=== PATIENT | male | born 1980 | race Caucasian/White ===

== ENCOUNTER 2017-10-16 17:27 | Observation (INO) | payer MEDICAID ==
--- NOTE | 2017-10-16 17:43 | EDPHY ---
H & P Time Seen by Provider: 10/16/17 17:43 HPI/ROS: Chief complaint. Abdominal pain HPI. 37-year-old male presents with abdominal pain of 2 days duration. He describes as cramping and bloating. He has had a recent URI but that seems to be improving. He has noticed with the cramping and bloating that he is burping more. Decreased passing gas per rectum. No nausea and vomiting. Diarrhea yesterday. Now stool productive of small hard pellets. The discomfort is somewhat moving sides but mainly in the lower right quadrant. Today somewhat sharp in addition to the cramping. Increased pain with walking movement and bumps in car. No radiation to back. No urinary symptoms. Penis and testicles are normal. No chest discomfort or shortness of breath. No fever. He has had similar symptoms previously. No history of abdominal surgery ROS Constitutional. no fever/chills, no weakness Eyes. no problems with vision ENT. no sore throat, no nasal drainage Cardiovascular. no chest pain Respiratory. no shortness of breath, no cough Abdominal. Abdominal pain with some diarrhea . no problems urinating MS. no calf pain/swelling, no neck/back pain, no joint pain Skin. no rash Lymph. no swollen glands Neuro. no headache, no dizziness, no difficulty walking or with speech Past Medical/Surgical History: Healthy Social History: , nonsmoker, no alcohol Smoking Status: Never smoked Physical Exam: General Appearance: Alert well-developed male moderate distress vital signs are stable Eyes: Pupils equal and round no pallor or injection. ENT, Mouth: Mucous membranes are moist. Respiratory: There are no retractions, lungs are clear to auscultation. Cardiovascular: Regular rate and rhythm. Gastrointestinal: Abdomen is soft with tenderness in the right lower quadrant at McBurney's point. Some tenderness along the inferior aspect of the umbilicus as well. Normal bowel sounds. No masses. Neurological: Awake and alert, sensory and motor exams grossly normal. Skin: Warm and dry, no rashes. Musculoskeletal: Neck is supple nontender. Extremities symmetrical, full range of motion. Psychiatric: Patient is oriented X 3, there is no agitation. Constitutional: Initial Vital Signs Temperature (C) 37.3 C 10/16/17 17:32 Heart Rate 100 10/16/17 17:32 Respiratory Rate 16 10/16/17 17:32 Blood Pressure 121/74 H 03/01/18 17:32 O2 Sat (%) 97 10/16/17 17:32 O2 Delivery Mode Room Air Allergies/Adverse Reactions: No Known Allergies Allergy (Verified 10/16/17 17:32) Home Medications: Medication Instructions Recorded NK [No Known Home Meds] 10/16/17 Medical Decision Making - Diagnostics Imaging Results: CT scan abdomen and pelvis with IV contrast reviewed by me and discussed with Dr. Boyle shows probably perforated appendix Procedures: IV normal saline. Morphine for pain. Zofran for nausea ED Course/Re-evaluation: Recheck at 7:00 p.m. And patient is having pain again. Re medicated with morphine The 7:40 p.m. Patient, his , and I discussed imaging study results, treatment plan including need for surgery. They expressed understanding and agreement. They would like to go by private vehicle to [facility]. Risks and benefits of this are discussed. Intravenous Invanz given. Patient is kept NPO I consulted Dr. Simeon, on-call for surgery. He is in the operating room and information was relayed to the nurse to Dr. Simeon. He agrees to accept the patient. I consulted and discussed case with Dr. Engle in the emergency department at [facility] so he is aware. Transfer paperwork is filled out Differential Diagnosis: I considered urinary tract infection, pyelonephritis, diverticulitis, appendicitis - Data Points Laboratory Results: Laboratory Results 10/16/17 17:50 10/16/17 17:50 10/16/17 10/16/17 10/16/17 19:05 17:50 17:50 WBC 20.17 10^3/uL H 10^3/uL (3.80-9.50) RBC 5.03 10^6/uL 10^6/uL (4.40-6.38) Hgb 15.8 g/dL g/dL (13.7-17.5) Hct 40.9 % % (40.0-51.0) MCV 81.3 fL L fL (81.5-99.8) MCH 31.4 pg pg (27.9-34.1) MCHC 38.6 g/dL H g/dL (32.4-36.7) RDW 10.8 % L % (11.5-15.2) Plt Count 380 10^3/uL 10^3/uL (150-400) MPV 8.4 fL L fL (8.7-11.7) Neut % (Auto) 88.3 % H % (39.3-74.2) Lymph % (Auto) 5.9 % L % (15.0-45.0) [place] % (Auto) 5.3 % % (4.5-13.0) Eos % (Auto) 0.0 % L % (0.6-7.6) Baso % (Auto) 0.1 % L % (0.3-1.7) Nucleat RBC Rel Count 0.0 % % (0.0-0.2) Absolute Neuts (auto) 17.81 10^3/uL H 10^3/uL (1.70-6.50) Absolute Lymphs (auto) 1.19 10^3/uL 10^3/uL (1.00-3.00) Absolute Monos (auto) 1.06 10^3/uL H 10^3/uL (0.30-0.80) Absolute Eos (auto) 0.00 10^3/uL L 10^3/uL (0.03-0.40) Absolute Basos (auto) 0.02 10^3/uL 10^3/uL (0.02-0.10) Absolute Nucleated RBC 0.00 10^3/uL 10^3/uL (0-0.01) Immature Gran % 0.4 % % (0.0-1.1) Immature Gran # 0.09 10^3/uL 10^3/uL (0.00-0.10) RBC/WBC/PLT Morphology NORMAL (NORMAL) Platelet Estimate ADEQUATE (ADEQ) Sodium 127 mEq/L L mEq/L (135-145) Potassium 3.6 mEq/L mEq/L (3.5-5.2) Chloride 90 mEq/L L mEq/L (97-110) Carbon Dioxide 24 mEq/l mEq/l (22-31) Anion Gap 13 mEq/L mEq/L (8-16) BUN 7 mg/dL mg/dL (7-23) Creatinine 0.7 mg/dL mg/dL (0.7-1.3) Estimated GFR > 60 Glucose 143 mg/dL H mg/dL (70-100) Calcium 9.1 mg/dL mg/dL (8.5-10.4) Urine Color PALE YELLOW Urine Appearance CLEAR Urine pH 5.5 (5.0-7.5) Ur Specific [place] <= 1.005 (1.002-1.030) Urine Protein NEGATIVE (NEGATIVE) Urine Ketones TRACE H (NEGATIVE) Urine Blood NEGATIVE (NEGATIVE) Urine Nitrate NEGATIVE (NEGATIVE) Urine Bilirubin NEGATIVE (NEGATIVE) Urine Urobilinogen 0.2 EU EU (0.2-1.0) Ur Leukocyte Esterase NEGATIVE (NEGATIVE) Urine Glucose NEGATIVE (NEGATIVE) Medications Given: Discontinued Medications Ertapenem (Invanz) 1 gm IVP EDNOW ONE PRN Reason: Protocol Stop: 10/16/17 19:37 Last Admin: 10/16/17 20:05 Dose: 1 gm Sodium Chloride (Ns) 1,000 mls @ 0 mls/hr IV EDNOW ONE; Wide Open PRN Reason: Protocol Stop: 10/16/17 18:03 Last Admin: 10/16/17 18:09 Dose: 1,000 mls Sodium Chloride (Ns) 1,000 mls @ 0 mls/hr IV ONCE ONE PRN Reason: Wide Open Stop: 10/16/17 20:04 Last Admin: 10/16/17 20:05 Dose: 1,000 mls Morphine Sulfate (Morphine) 6 mg IVP EDNOW ONE Stop: 10/16/17 18:03 Last Admin: 10/16/17 18:14 Dose: 6 mg Morphine Sulfate (Morphine) 6 mg IVP EDNOW ONE Stop: 10/16/17 19:08 Last Admin: 10/16/17 19:15 Dose: 6 mg Ondansetron HCl (Zofran) 4 mg IVP EDNOW ONE Stop: 10/16/17 18:03 Last Admin: 10/16/17 18:12 Dose: 4 mg Departure - Departure Disposition: [facility] Clinical Impression: Acute appendicitis Qualifiers: Acute appendicitis type: with localized peritonitis Qualified Code(s): K35.3 - Acute appendicitis with localized peritonitis Condition: Fair Referrals: NONE *PRIMARY CARE P,. [Primary Care Provider] - As per Instructions
[2017-10-16 17:57] LABS: PLATELET COUNT 380 10^3/uL (150-400)
[2017-10-16] MEDS ORDERED: ONDANSETRON 4 MG/2 ML VIAL IVP ONE (18:02)
[2017-10-16] MEDS ORDERED: NS 1,000 ML IV ONE ×2 (18:02→20:03)
[2017-10-16] MEDS ORDERED: IOPAMIDOL (ISOVUE-300) 100 ML BTL ONE (18:11)
[2017-10-16] MEDS ORDERED: ERTAPENEM 1 GM VIAL IVP ONE (19:36)
[2017-10-16] MEDS ORDERED: NS 100 ML BAG (MINI-BAG) IV ONE (19:52)
[2017-10-16] MEDS ORDERED: HYDROmorphONE/DILAUDID 2 MG/ML INJ IVP ONE (20:17)
[2017-10-16] MEDS ORDERED: ERTAPENEM 1 GM VIAL IV ONE (22:22)
--- NOTE | 2017-10-16 22:29 | PDGENHP ---
History & Physical Chief Complaint: abd pain x 2 days History of Present Illness: 37 y/o male with 2 day history of abd pain [place] [facility] [place]. CT showed appendicitis and he was transfered to [facility] for definitive surgical care Pertinent Past, Social, Family History: wisdom tooth extraction. smokes pot daily. 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 - icterus/adenopathy. Abd : soft/hypoactive bowel sounds. tender RLQ without guarding/mass + Rovsing's Cardiorespiratory Assessment: CVS RRR. Lungs CTA Assessment & Plan Assessment: Acute appendicitis (Acute) Plan: To OR for appendectomy re-dose Invanz pre-op we discussed surgery, risks and expected recovery informed consent was obtained
[2017-10-16] MEDS ORDERED: LR 1,000 ML IV SCH (22:30)
[2017-10-16] MEDS ORDERED: LR 1,000 ML IV ONE (22:46)
--- NOTE | 2017-10-16 22:51 | PDANEPAE ---
ANE History of Present Illness 37 year old male w/ acute appendicitis for lap appy. ANE Past Medical History - Cardiovascular History Hx Hypertension: No Hx Arrhythmias: No Hx Chest Pain: No Hx Coronary Artery / Peripheral Vascular Disease: No Hx CHF / Valvular Disease: No Hx Palpitations: No - Pulmonary History Hx COPD: No Hx Asthma/Reactive Airway Disease: No Hx Recent Upper Respiratory Infection: No Hx Oxygen in Use at Home: No Hx Sleep Apnea: No - Endocrine History Hx Diabetes: No Hypothyroid: No Hyperthyroid: No Obesity: no - Renal History Hx Renal Disorders: No - Liver History Hx Hepatic Disorders: No - Neurological & Psychiatric Hx Hx Neurological and Psychiatric Disorders: No - Cancer History Hx Cancer: No - Congenital Disorder History Hx Congenital Disorders: No - GI History Gastrointestinal History Comment: Acute appendicitis - Chronic Pain History Chronic Pain: No - Surgical History Prior Surgeries: Adamant teeth extraction ANE Review of Systems Review of systems is: negative Review of Systems: - Exercise capacity 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) ANE Patient History - Allergies Allergies/Adverse Reactions: No Known Allergies Allergy (Verified 10/16/17 17:32) - Home Medications Home medications: home medication list seen and reviewed Home Medications: NK [No Known Home Meds] 10/16/17 [Last Taken Unknown] - NPO status NPO Status: no food or drink >8 hours - Anes Hx Anes Hx: no prior problems - Smoking Hx Smoking Status: Never smoked Marijuana use: Yes - Alcohol Use Alcohol Use: Rarely - Family Anes Hx Family Anes Hx: neg - N/A ANE Labs/Vital Signs - Labs Result Diagrams: 10/16/17 17:50 10/16/17 17:50 - Vital Signs Vital Signs: reviewed preoperatively; see RN documention for details Blood Pressure: 116/71 Heart Rate: 95 Respiratory Rate: 16 O2 Sat (%): 95 Height: 172.72 cm Weight: 61.689 kg ANE Physical Exam - Airway Neck exam: FROM Mallampati Score: Class 2 Mouth exam: normal dental/mouth exam, friend - Pulmonary Pulmonary: no respiratory distress - Cardiovascular Cardiovascular: regular rate and rhythym - ASA Status ASA Status: I, E ANE Anesthesia Plan Anesthesia Plan: general endotracheal anesthesia Total IV Anesthesia: No
[2017-10-16] MEDS ORDERED: BUPIVACAINE 0.25% 30 ML SDV ONE (22:56)
[2017-10-16] MEDS ORDERED: LIDOCAINE 2% 5 ML SDV ONE (23:07)
[2017-10-16] MEDS ORDERED: ROCURONIUM 100 MG/10 ML VIAL ONE (23:07)
[2017-10-16] MEDS ORDERED: PROPOFOL 200 MG/20 ML VIAL ONE (23:07)
[2017-10-16] MEDS ORDERED: fentaNYL 100 MCG/2 ML INJ ONE (23:07)
[2017-10-16] MEDS ORDERED: DEXAMETHASONE 4 MG/ML VIAL ONE (23:19)
[2017-10-16] MEDS ORDERED: ONDANSETRON 4 MG/2 ML VIAL ONE (23:19)
[2017-10-16] MEDS ORDERED: PHENYLEPHRINE HCL 100 MCG/ML SYR ONE (23:23)
[2017-10-16] MEDS ORDERED: SUGAMMADEX SODIUM 200 MG/2 ML VIAL IVP ONE (23:49)
[2017-10-17] MEDS ORDERED: LR 500 ML IV PRN (00:03)
[2017-10-17] MEDS ORDERED: fentaNYL 100 MCG/2 ML INJ IVP PRN (00:03)
[2017-10-17] MEDS ORDERED: NALOXONE HCL 0.4 MG/ML INJ IVP PRN (00:03)
[2017-10-17] MEDS ORDERED: HYDROmorphONE/DILAUDID 2 MG/ML INJ IVP PRN (00:03)
[2017-10-17] MEDS ORDERED: ONDANSETRON 4 MG/2 ML VIAL IVP PRN ×2 (00:03→00:45)
[2017-10-17] MEDS ORDERED: PROMETHAZINE HCL 25 MG/ML INJ IVP PRN (00:03)
[2017-10-17] MEDS ORDERED: KETOROLAC 30 MG/1 ML SDV ONE (00:14)
[2017-10-17] MEDS ORDERED: ACETAMINOPHEN 325 MG TAB PO PRN (00:45)
[2017-10-17] MEDS ORDERED: HYDROmorphone HCL/NS 0.5 MG/ML SYR IVP PRN (00:45)
--- NOTE | 2017-10-17 00:45 | POSTOPPROG ---
Post Op Note Date of Operation: 10/17/17 Surgeon: Santy Sanchez (, FACS) Anesthesiologist: Seng Up MD Anesthesia: GET(General Endotracheal) Pre-op Diagnosis: appendicitis Post-op Diagnosis: gangrenous appendicitis Procedure: lap appendectomy Findings: acute gangrenous appendicitis Inf/Abcess present in the surg proc area at time of surgery?: Yes Depth: Organ Space EBL: Minimal (10) Complications: none
[2017-10-17] MEDS ORDERED: LR 1,000 ML IV SCH (01:00)
[2017-10-17 01:08] VITALS: RESP 14
[2017-10-17] MEDS: HYDROCODONE/APAP 5/325 TAB PO PRN ×3 (01:37→08:20)
--- NOTE | 2017-10-17 02:31 | GOP ---
[f rep st] OPERATIVE REPORT DATE OF OPERATION: 10/16/2017 SURGEON: Santy Sanchez MD, FACS ANESTHESIA: General endotracheal. ANESTHESIOLOGIST: Seng Up MD. PREOPERATIVE DIAGNOSIS: Acute appendicitis. POSTOPERATIVE DIAGNOSIS: Acute gangrenous appendicitis. PROCEDURE PERFORMED: Laparoscopic appendectomy. FINDINGS: Acute gangrenous appendicitis with relatively normal-appearing base of the appendix. No evidence of nan perforation or abscess formation. ESTIMATED BLOOD LOSS: 10 mL or less. DESCRIPTION OF PROCEDURE: After informed consent was obtained, the patient was brought to the operating room and placed under general anesthesia. The abdomen was clipped, prepped, and draped in the usual fashion. Before proceeding, a time-out and identification of the patient was performed. Marcaine 0.25% was used to infiltrate all incision sites. An initial longitudinal incision was made through the base of the umbilicus and ventral traction was applied to the abdominal wall. A Veress needle was introduced into the peritoneal cavity. Position was confirmed by saline infusion. A pneumoperitoneum was established with CO2 gas to a pressure of 15 mmHg. The Veress needle was withdrawn and replaced with a 5 mm bladeless trocar. A 0- degree scope was introduced and the peritoneal cavity was visualized. There was some cloudy fluid in the dependent portion of the pelvis. The bladder was moderately full. A 2nd port was placed part way between the umbilicus and the pubis under direct visualization. A left lower quadrant 12 mm port was established. This allowed introduction of atraumatic grasping forceps. The appendix laid deep in the pelvis between the bladder and the rectum and the pelvic sidewall, was somewhat adherent to the pelvic sidewall, and was slowly and carefully dissected bluntly away from these structures and was delivered out of the pelvis. The mesoappendix was taken down with the Harmonic Scalpel and the appendix where it joined the cecum appeared relatively normal in caliber. Here, it was divided with a JAELYN stapler and retrieved through the left lower quadrant port site using an Endopouch. The 12 mm port was replaced. A suction meter/relay technician was used to instill 2 L of warm normal saline solution into the peritoneal cavity and was aspirated until the effluent was clear. Hemostasis appeared secure. The 12 mm port site was closed with a transfascial closure needle and 0 Vicryl suture. The remaining ports were removed and the pneumoperitoneum was evacuated. The skin of all incisions was closed with 3-0 Monocryl suture in a subcuticular fashion. Mastisol and Steri-Strips were applied. Sterile dressings were placed. Patient was returned extubated to the recovery room in satisfactory condition. Needle, sponge, and instrument count were correct. Copy requested to: Corky Marshall MD [facility] /[id number]/MODL MTDD
[2017-10-17] MEDS ORDERED: IBUPROFEN 600 MG TAB PO SCH (06:00)
[2017-10-17 08:13] VITALS: BP 95/54; PULSE 66; TEMP 98; O2SAT 93
[2017-10-17] MEDS ORDERED: ENOXAPARIN 40 MG/0.4 ML SYR SC SCH (09:00)
[2017-10-17] MEDS ORDERED: SENNOSIDES/DOCUSATE SODIUM TAB PO SCH (09:00)
--- NOTE | 2017-10-17 09:31 | POSTANESTH ---
Post Anesthetic Evaluation Cardiovascular Status: Normal, Stable, Similar to Pre-Op Cond Respiratory Status: Normal, Stable, Similar to Pre-op Cond. Level of Consciousness/Mental Status: Can Participate in Eval, Alert and Oriented Pain Control: Adequate, Prn Tx Ordered Nausea/Vomiting Control: Adequate, Prn Tx Ordered Complications Possibly Related to Anesthesia: None Noted
[2017-10-17] MEDS ORDERED: ERTAPENEM 1 GM VIAL IV ONE (10:06)
--- NOTE | 2017-10-17 10:06 | PDDCSUM ---
Discharge Summary Discharge Summary: DOA 10/16/17 DOD 10/17/17 DC Dx: acute appendicitis Procedure: 10/16/17 lap appendectomy Course: Otoniel presented [place] [facility] [place] abd pain and was diagnosed with appendicitis by Dr. Morrissey. He was transferred to [facility] for definitive care and underwent lap appendectomy after receiving IV Ertapenam and IV fluids. His post op course was unremarkable and he tolerated a soft diet and was able to void after surgery. He was discharged home after receiving one additional dose of Ertapenam. He was instructed in wound care and activity and will follow up in one week for wound check. DC meds: Center 5/325 #20 Senokot S #30 Ibuprofen 600mg #30 S MD Laura, FACS
== END 2017-10-17 11:33 | disposition home or self-care (01) ==
LOC: CED 17:27 → CEDHOLD 20:18 → INTOOBSV 20:18 → F3E 21:31
PROVIDERS: ADMIT Surgery; ATTEND Surgery
PROC: 0DTJ4ZZ Resection of Appendix, Percutaneous Endoscopic Approach (ICD-10-PCS; principal; 2017-10-17)
DX: K35.2 Acute appendicitis with generalized peritonitis (principal); E86.9 Volume depletion, unspecified
CPT/HCPCS: 44970; 74177; 96361; 96374; 96375; 96376; 99285; G0378; 80048-PO; 81003-PO; 85025-PO; J1100; J1170; J1335; J1650; J1885; J2270; J2370; J2405; J2704; J3010; Q9967

== ENCOUNTER 2017-10-19 18:58 | Emergency (ER) | payer MEDICAID ==
[2017-10-19 19:07] VITALS: BP 109/69; PULSE 77; RESP 16; TEMP 98.4; O2SAT 96
--- NOTE | 2017-10-19 19:28 | EDPHY ---
H & P Time Seen by Provider: 10/19/17 19:03 HPI/ROS: Chief complaint: Patient requesting more pain medications. HPI: Patient states he had his appendix removed by Dr. Santy Sanchez early Friday morning after being seen at this facility evening. He was told he was"almost perforated". His surgery was unremarkable and he went home that same Friday. He has been taking 2 Atlanta every 4 hr as prescribed by Dr. Sanchez. He has also been taking stool softeners. He denies any nausea, vomiting, constipation. He has had no fevers or chills. His wounds are still covered by the original dressings. Per his he did try to call Dr. Sanchez office today but was unable to get a hold of anyone. No other complaints. Contents of 10 point review of systems otherwise negative except for what is mentioned in HPI. General Appearance: Alert, no distress. Eyes: Pupils equal and round no pallor or injection. ENT, Mouth: Mucous membranes moist. Respiratory: There are no retractions, lungs are clear to auscultation. Cardiovascular: Regular rate and rhythm. Gastrointestinal: Abdomen is soft with appropriate postoperative tenderness. Bowel sounds are hypoactive but present. Wounds clean with no drainage or erythema. Neurological: Oriented, alert, movement in all 4 extremities. Skin: Warm and dry, no rashes. Musculoskeletal: Neck is supple nontender. Extremities are symmetrical, full range of motion. Psychiatric: Patient is oriented X 3, there is no agitation. Past Medical/Surgical History: Appendectomy Social History: Lives with , one child. Smoking Status: Never smoked Constitutional: Initial Vital Signs Temperature (C) 36.9 C 10/19/17 19:03 Heart Rate 77 10/19/17 19:03 Respiratory Rate 16 10/19/17 19:03 Blood Pressure 109/69 10/19/17 19:03 O2 Sat (%) 96 10/19/17 19:03 O2 Delivery Mode Room Air Allergies/Adverse Reactions: No Known Allergies Allergy (Unverified 10/19/17 20:57) Home Medications: Medication Instructions Recorded Acetaminophen [Tylenol 325mg (*)] 650 mg PO Q4HRS PRN tab 10/17/17 Hydrocodone/APAP 5/325 [[place] 1 - 2 tab PO Q4HRS PRN #20 tab 03/02/18 5/325 (*)] Ibuprofen [Motrin (*)] 600 mg PO Q8HRS #30 tab 10/17/17 Sennosides/Docusate Sodium 1 tab PO BID #30 tab 10/17/17 [Senokot-S] Hydrocodone/Acetaminophen 2 each PO Q4-6PRN PRN 7 Days #10 10/19/17 [Hydrocodon-Acetaminophen 5-325] tablet Medical Decision Making Differential Diagnosis: Differential diagnosis includes postoperative complications such as abscess, obstruction, wound infection, drug-seeking behavior. After evaluation patient with appropriate postoperative pain and has not been overusing his medications. No evidence of obstruction, infection, abscess, wound dehiscence. Will prescribe a small amount of [place] for continued postoperative use. Discussed tapering opiate medications and utilizing ibuprofen and Tylenol. Patient does have follow-up with Dr. Santy Sanchez for postop check later this week. Stable for discharge. Departure - Departure Disposition: Home, Routine, Self-Care Clinical Impression: Postoperative abdominal pain Condition: Good Instructions: Pain Management After Surgery (DC) Additional Instructions: Continue stool softeners as discussed. See Dr. Sanchez in follow-up this week. Referrals: Santy Sanchez MD [Medical Doctor] - As per Instructions Prescriptions: Hydrocodone/Acetaminophen [Hydrocodon-Acetaminophen 5-325] 2 each PO Q4-6PRN PRN 7 Days #10 tablet PRN Reason: Pain, Moderate
== END 2017-10-19 19:46 | disposition home or self-care (01) ==
LOC: CED 18:58
DX: G89.18 Other acute postprocedural pain (principal); R10.9 Unspecified abdominal pain

== ENCOUNTER 2018-06-22 11:22 | Emergency (ER) | payer MEDICAID ==
[2018-06-22 11:34] VITALS: BP 127/75
--- NOTE | 2018-06-22 12:02 | EDPHY ---
H & P Time Seen by Provider: 06/22/18 11:27 HPI/ROS: This patient injured his hands while practicing martial arts. He describes having a closed fist and pending down on and in intermittent firm object striking with the 5th metacarpal region of his hand and sustaining an injury 10 days prior to arrival. Since that time he has had continued aching and swelling to the proximal 5th metacarpal region of his hand and describes associated paresthesias to the 5th finger intermittently. 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 No other exacerbating factors are noted. ROS: Neuro: No nan numbness to his hand. Musculoskeletal: No wrist pain though he has noticed occasional clicking in his wrist since the incident. Integumentary: No lacerations or abrasions. He does have ecchymosis associated with the area of injury. 5 point review of symptoms is performed and otherwise negative with exception of pertinent positives and negatives listed in HPI and ROS Past Medical/Surgical History: Otherwise healthy Smoking Status: Never smoked Physical Exam: Physical Exam Vital signs are normal. General: No acute distress Cardiac: Brisk capillary refill is intact throughout. Pulses are 2+ and symmetric in the affected extremity. Skin: No rash or pallor. Extremities: Atraumatic normal except for right hand Right hand: Patient has tenderness at the 5th metacarpal mid to proximal aspect with ecchymosis and mild swelling. There is no malrotation of the 5th finger when viewed on end. He has no wrist swelling or tenderness. No other hand swelling or tenderness. Neuro: Alert and oriented with no sensorimotor deficits in the affected hand. Initial differential diagnosis: Hand contusion, hand fracture Constitutional: Initial Vital Signs Temperature (C) 36.7 C 06/22/18 11:27 Heart Rate 64 06/22/18 11:27 Respiratory Rate 16 06/22/18 11:27 Blood Pressure 127/75 H 06/22/18 11:27 O2 Sat (%) 95 06/22/18 11:27 O2 Delivery Mode Room Air Allergies/Adverse Reactions: No Known Allergies Allergy (Verified 06/22/18 11:27) Home Medications: Medication Instructions Recorded NK [No Known Home Meds] 06/22/18 MDM/Departure - MDM Diagnostics: Three-view hand x-ray: Findings consistent with proximal 5th metacarpal fracture nondisplaced nonangulated by my interpretation Imaging Results: Imaging Impressions Hand X-Ray 06/22/18 11:31 Impression: Nondisplaced proximal metaphysis, fifth metacarpal fracture. Imaging: I viewed and interpreted images myself ED Course/Re-evaluation: Our tech placed the patient in Ortho Glass ulnar gutter splint with my supervision. The patient is neurovascularly intact post splint application. He is also fitted with a sling. I counseled patient regarding metacarpal fracture. - Depart Disposition: Home, Routine, Self-Care Clinical Impression: Closed fracture of 5th metacarpal Qualifiers: Encounter type: initial encounter Metacarpal location: base Fracture alignment : nondisplaced Laterality: right Qualified Code(s): S62.346A - Nondisplaced fracture of base of fifth metacarpal bone, right hand, initial encounter for closed fracture Condition: Good Instructions: Hand Fracture (ED) Additional Instructions: Diagnosis: 5th metacarpal fracture Plan: Keep splint on at all times-clean and dry Ibuprofen Tylenol if needed for discomfort Call Dr. Atkins-hand specialist arrange follow-up appointment for further evaluation and casting. Referrals: Idalia Lebron MD [Medical Doctor] - As per Instructions
--- NOTE | 2018-06-25 16:21 | ASMTCMCOM ---
CM Note CM Note Notes: Received a call from the patient yesterday. Pt was referred to the on-call hand surgeon/specialist at the time of his ED visit, Dr Traci Atkins. Pt states he called Dr Atkins's office and was told they would not see him due to him having Medicaid and also because Dr Atkins recently resigned from her practicing privileges at [facility]. After reaching out to another hand specialist, Dr Chiang at [facility], and speaking w/Traci See in [facility], this CM called Dr Canales at [facility] and requested he see the patient. Spoke w/Dr Canales and he states he would see the patient next week. This CM called pt back and provided Dr Canales's information and told him to call and make an appt for next week. This CM available for further assistance if needed. Date Signed: 06/25/2018 04:20 PM Electronically Signed By:Roseann Zelaya RN
== END 2018-06-22 12:28 | disposition home or self-care (01) ==
LOC: CED 11:22
PROC: 2W3EX1Z Immobilization of Right Hand using Splint (ICD-10-PCS; principal; 2018-06-22)
DX: S62.346A Nondisplaced fracture of base of fifth metacarpal bone, right hand, initial encounter for closed fracture (principal); Y93.75 Activity, martial arts
CPT/HCPCS: 73130-PO; A4565

== ENCOUNTER 2018-08-27 09:01 | Emergency (ER) | payer MEDICAID ==
[2018-08-27 09:13] VITALS: BP 110/65
--- NOTE | 2018-08-27 09:45 | EDPHY ---
H & P Stated Complaint: st for ~ 12 hours. Time Seen by Provider: 08/27/18 09:16 HPI/ROS: 38-year-old male presents complaining of sore throat since last night, both his and his son had strep throat in the last 1 week. Patient also complains of some cough with large amount of mucus. Review of systems As per HPI General positive fevers positive chills no weakness HEENT no eye pain no eye discharge. No eye redness, positive sore throat Respiratory no cough, no shortness of breath Cardiac no chest pain, no peripheral edema GI no abdominal pain, no diarrhea, no constipation, no nausea, no vomiting no flank pain, no hematuria, no dysuria Musculoskeletal positive myalgias, no joint pain Heme no easy bruising, no easy bleeding Endo no polyuria, no polydipsia Skin no rashes, no pruritus Neuro no syncope, no dizziness, no headaches Psych is no suicidal ideation, no homicidal ideation Source: Patient Exam Limitations: No limitations - Personal History Current Tetanus Diphtheria and Acellular Pertussis (TDAP): Yes Tetanus Vaccine Date: 2013 - Medical/Surgical History Hx Asthma: No Hx Chronic Respiratory Disease: No Hx Diabetes: No Hx Cardiac Disease: No Hx Renal Disease: No Hx Cirrhosis: No Hx Alcoholism: No Hx HIV/AIDS: No Hx Splenectomy or Spleen Trauma: No Other PMH: Appy - Family History Significant Family History: No pertinent family hx - Social History Smoking Status: Never smoked - Physical Exam Exam: 38-year-old male Alert and oriented in no acute distress nontoxic appearance, afebrile Atraumatic normocephalic Extraocular muscles intact, anicteric Neck-supple, positive anterior cervical lymphadenopathy mildly tender to palpation Oropharynx positive enlarged tonsils, erythematous, no uvular deviation, no purulent exudate, tolerating own secretions, no trismus Lungs clear to auscultation bilaterally Heart regular rate and rhythm Abdomen normoactive bowel sounds soft nontender Extremities no cyanosis clubbing edema Skin no rash Constitutional: Initial Vital Signs Temperature (C) 36.9 C 08/27/18 09:08 Heart Rate 81 08/27/18 09:08 Respiratory Rate 14 08/27/18 09:08 Blood Pressure 110/65 08/27/18 09:08 O2 Sat (%) 97 08/27/18 09:08 O2 Delivery Mode Room Air Allergies/Adverse Reactions: No Known Allergies Allergy (Verified 08/27/18 09:03) Home Medications: Medication Instructions Recorded Penicillin V Potassium [Penicillin 500 mg PO TID 10 Days #30 tab 08/27/18 VK] Medical Decision Making ED Course/Re-evaluation: Patient seen and evaluated for sore throat Strep screen positive Impression Strep pharyngitis Plan Pen VK 500 mg three times daily times 10 days Return if worsening Differential Diagnosis: Differential diagnosis considered but not limited to: Viral pharyngitis, mononucleosis, strep pharyngitis, URI, viral syndrome - Data Points Point of Care Test Results: Strep Strep Throat Swab Collection 08/27/18 Date Strep Throat Swab Swab 09:15 Collection Time Strep Result Detected Departure - Departure Disposition: Home, Routine, Self-Care Clinical Impression: Acute streptococcal pharyngitis Condition: Good Instructions: Strep Throat (ED) Referrals: NONE *PRIMARY CARE P,. [Primary Care Provider] - As per Instructions [facility] [Provider Group] - As per Instructions Prescriptions: Penicillin V Potassium [Penicillin VK] 500 mg PO TID 10 Days #30 tab
== END 2018-08-27 09:55 | disposition home or self-care (01) ==
LOC: CED 09:01
DX: J02.9 Acute pharyngitis, unspecified (principal)
CPT/HCPCS: 99283-ER